=== PATIENT | male | born 2000 | race Caucasian/White ===

== ENCOUNTER 2020-05-21 12:28 | Emergency (ER) | payer SELFPAY ==
[2020-05-21 12:38] VITALS: BP 136/80; PULSE 99; RESP 18; TEMP 36.3; O2SAT 96; BMI 24.4
--- NOTE | 2020-05-21 12:44 | XRR_ITS ---
PROCEDURE INFORMATION: Exam: XR Right Hand Exam date and time: 05/21/2020 12:45 PM Age: 20 years old Clinical indication: Injury or trauma; Initial encounter; Laceration; Right; Ring finger and little finger; Additional info: Pain TECHNIQUE: Imaging protocol: XR Right hand. Views: 3 or more views. COMPARISON: No relevant prior studies available. FINDINGS: Bones/joints: There is a mild deformity in the distal aspect of the metacarpal consistent with a old injury. The exam does not show acute bony abnormalities. Soft tissues: Unremarkable. Negative for soft tissue foreign bodies in the 4th and 5th digits. Mild periarticular soft tissue edema is seen in the 4th and 5th digits XR/XR hand RT min 3V* [id number] IMPRESSION: 1. No acute bone abnormality. 2. 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 Mild soft tissue edema 4th and 5th digits
--- NOTE | 2020-05-21 12:48 | W.ED.EXTPRO ---
HPI - Extremity Problem General: Chief complaint: Extremity Injury, Upper Stated complaint: R hand injury Time Seen by Provider: 05/21/20 12:44 History of Present Illness: HPI Narrative: Patient punched a mailbox last night restating lacerations to #4 and 5 fingers right hand complains about pain with moving fingers. MD Complaint: extremity pain Onset (ago): hour(s) Pain Consistency: constant Location: right and upper extremity Severity scale (1-10): 4 Quality: aching Radiation: none Relieving factors: immobilization Exacerbating factors: range of motion Associated symptoms: Reports no associated symptoms; Deny chest pain, fever(s) or rash Review of Systems Const: Denies: fever(s), chills or body aches Eyes: Denies: change in vision or blurry vision ENMT: Denies: throat pain or nasal congestion Card: Denies: chest pain or dyspnea on exertion Resp: Denies: dyspnea, productive cough or non-productive cough GI: Denies: abdominal pain, nausea or vomiting : Denies: difficulty urinating Musc: Reports: extremity pain (He has laceration #4 and 5 fingers hurts with bending hand.) Skin/Breast: Denies: rash Neuro: Denies: headache(s) Psych: Denies: anxiety or depression Po/Lymph: Denies: easy bruising PFSH ED PFSH: Social History (Updated 05/21/20 @ 12:42 by Rigoberto Martinez RN) Smoking and tobacco status: never smoked Alcohol intake: current Alcohol intake frequency: 0-2 Drinks per Day Substance/Drug Use: never Physical Exam Const: COMMON NORMALS: no acute distress, average body habitus and patient oriented x3 HENMT: COMMON NORMALS: normocephalic HEAD & SCALP: normal to inspection and normocephalic FACE & SINUS: normal facial exam Eye: COMMON NORMALS: conjunctivae normal GENERAL EYE: appearance normal, both eyes and all related structures CONJUNCTIVA: Yes conjunctivae normal Neck/C-Spine: COMMON NORMALS: no JVD Chest: COMMONS NORMALS: normal inspection of the chest Resp: COMMON NORMALS: normal respiratory effort and clear to auscultation bilaterally AUSCULTATION: clear to auscultation bilaterally Cardio: COMMON NORMALS: no JVD, regular rate and regular rhythm RATE: regular rate RHYTHM: regular rhythm GI: COMMON NORMALS: Normal to inspection, nondistended, normoactive bowel sounds present Extremity: COMMON NORMALS: normal to inspection and full ROM Neuro: COMMON NORMALS: patient oriented x3 Psych: COMMON NORMALS: mental status grossly normal APPEARANCE: Yes grossly normal Skin: OTHER: Has 2 small lacerations MP joint of #4 and 5 finger no swelling noted good distal neurovascular status hand appears fine Procedures Laceration Laceration 1: Site: hand Side (If applicable): right Size (cm): 3 Description: linear Pre-repair: wound explored and irrigated extensively Size (cm): other (skin adhesive) Course Vital Signs: Vital signs: Vital Signs Temperature 97.3 F L 05/21/20 12:38 Pulse Rate 99 05/21/20 12:38 Respiratory Rate 16 05/21/20 13:07 Blood Pressure 136/80 05/21/20 12:38 Pulse Oximetry 96 05/21/20 12:38 MDM - Extremity (Nontraumatic) MDM Narrative: Medical decision making narrative: 8 laceration Prevident suturing skin he was used on his 2 lacerations #4 and 5 fingers he was instructed to keep those finger straight for next 24 to 48 hours leave dressing intact follow-up as needed. Discharge Plan Discharge Patient Disposition: Home Clinical Impression: Laceration of fingers without complication Qualifiers: Encounter type: initial encounter Qualified Code(s): S61.219A - Laceration without foreign body of unspecified finger without damage to nail, initial encounter Condition: Stable Prescriptions: New Keflex 500 mg capsule 500 mg PO TID 7 Days Qty: 21 RF: 0 Discharge Orders: Discharge Order (Routine); Ordered 05/21/20 Ordered By: Albert Mc Discharge Diet: Usual diet Discharge Activity: Increase activity as tolerated Patient Instructions: Skin Adhesive Care (ED) Activity Restrictions/Additional Instructions: Follow-up with medical provider as directed. Take medications as prescribed. Return to the ER or your medical provider if condition worsens. Please read and understand discharge instructions. If any questions ask please. Keep odilia tape in place 24-48 hrs. Coding Level of Care Code ED Media Theorist And Author Of for Esperanza Fwd Exam Comprehensive
[2020-05-21 13:07] VITALS: RESP 16
--- NOTE | 2020-05-21 13:15 | PC.NURSE ---
hand soaked in ns per provider tonja gonzáles.
[2020-05-21 13:27] VITALS: RESP 16
--- NOTE | 2020-05-21 13:27 | PC.NURSE ---
santana hartley taped per provider tonja carson
== END 2020-05-21 13:28 | disposition home or self-care (01) ==
PROVIDERS: Emergency Provider Nurse Practitioner Family
DX: S61.214A Laceration without foreign body of right ring finger without damage to nail, initial encounter (principal); S61.216A Laceration without foreign body of right little finger without damage to nail, initial encounter; W22.09XA Striking against other stationary object, initial encounter
CPT/HCPCS: 12002; 12345; 73130; 99281; 99282

== ENCOUNTER 2020-05-22 17:21 | Emergency (ER) | payer SELFPAY ==
[2020-05-22 17:34] VITALS: BP 142/81; PULSE 81; RESP 18; TEMP 37.1; O2SAT 98; BMI 24.4
--- NOTE | 2020-05-22 17:40 | ED_ITS ---
HPI - Wound/Laceration General: Chief Complaint: Wound/Laceration Stated Complaint: lacerations on hand/was here yesterday Time Seen by Provider: 05/22/20 17:40 Source: patient Mode of arrival: ambulatory Limitations: no limitations History of Present Illness: HPI narrative: Patient comes in today for complaints of redness and swelling to the fourth and fifth digit on the right hand. This is the area where patient had injured himself 2 days ago. Patient had some skin adhesive applied to the fourth and and fifth digit to close the wound at that time. Patient did not start antibiotic though. Patient comes back today for increased redness and swelling to the wounds. Review of Systems General: Reports: 10 or more systems reviewed and unremarkable except in HPI and below Skin/Breast: Reports: changes in skin color PFSH ED PFSH: Social History (Updated 05/21/20 @ 12:42 by Rigoberto Martinez RN) Smoking and tobacco status: never smoked Alcohol intake: current Alcohol intake frequency: 0-2 Drinks per Day Physical Exam Const: COMMON NORMALS: no acute distress and patient oriented x3 GENERAL APPEARANCE: cooperative HENMT: COMMON NORMALS: normocephalic and Normal external nose present HEAD & SCALP: normal to inspection and normocephalic NOSE: Normal external nose present Eye: GENERAL EYE: appearance normal, both eyes and all related structures Neck/C-Spine: COMMON NORMALS: full ROM Chest: COMMONS NORMALS: normal inspection of the chest Resp: COMMON NORMALS: normal respiratory effort EFFORT & INSPECTION: Yes able to speak in complete sentences Cardio: COMMON NORMALS: regular rate and regular rhythm RATE: regular rate RHYTHM: regular rhythm GI: COMMON NORMALS: non-tender Back/Pelvis: COMMON NORMALS: thoracic and lumbar spine normal to inspection Extremity: COMMON NORMALS: normal to inspection Neuro: COMMON NORMALS: patient oriented x3 and moves all extremities Psych: COMMON NORMALS: mental status grossly normal and cooperative Skin: NARRATIVE SKIN EXAM: Redness and swelling to the fourth and fifth digit to the right hand with redness extending into the dorsal hand in the same area. Warmth is noted to the area. Course Vital Signs: Vital signs: Vital Signs Temperature 98.7 F 05/22/20 17:34 Pulse Rate 80 05/22/20 18:17 Respiratory Rate 14 05/22/20 18:17 Blood Pressure 131/82 05/22/20 18:17 Pulse Oximetry 99 05/22/20 18:17 MDM - Wound/Laceration MDM Narrative: Medical decision making narrative: Patient comes in for concerns of infection to the wounds on his fourth and fifth digit of his right hand. On exam we note redness and swelling with warmth. Differential diagnosis includes foreign body, wound infection, contusion. Adhesive was removed from the hand patient was started on antibiotic. Patient had only taken 1 dose of his antibiotic that he was prescribed. Feel the patient probably has a little bit of a wound infection there was able to express some purulent drainage from the wound site no signs of tenosynovitis or tendon dysfunction was noted. Patient will continue with antibiotic and follow-up for worsening signs and symptoms. Patient reported understanding. Discharge Plan Discharge Patient Disposition: Home Clinical Impression: Infected wound Condition: Stable Prescriptions: No Action Keflex 500 mg capsule 500 mg PO TID 7 Days Qty: 21 RF: 0 Discharge Orders: Discharge Order (Routine); Ordered 05/22/20 Ordered By: John Richards Discharge Diet: Usual diet Discharge Activity: Increase activity as tolerated Patient Instructions: Wound Infection (ED) Activity Restrictions/Additional Instructions: Home and rest. Clean wound twice daily with soapy water and apply antibiotic ointment. Cover wound when it is draining with gauze dressing. Take antibiotic as ordered. Follow-up with primary care for further treatment. Return to the emergency department for new concerns. Discharge Date/Time: 05/22/20 18:17 Coding Level of Care Code ED Tool Grinder for Esperanza Mendosa Exam Comprehensive
[2020-05-22] MEDS: cefTRIAXone 1,000 mg SDV 1000 MG IM (18:05)
[2020-05-22] MEDS: mupirocin oint 22 gm 1 APPLIC TOPICAL (18:06)
[2020-05-22 18:17] VITALS: BP 131/82; PULSE 80; RESP 14; O2SAT 99
== END 2020-05-22 18:17 | disposition home or self-care (01) ==
PROVIDERS: Emergency Provider Nurse Practitioner Family
DX: L08.9 Local infection of the skin and subcutaneous tissue, unspecified (principal)
CPT/HCPCS: 12345; 96372; 99281; 99283; J0696

== ENCOUNTER → 2021-08-30 12:40 | Outpatient (BNVA) | payer SELFPAY | PROVIDERS: Visit Provider Nurse Practitioner Family | DX: Z20.822 Contact with and (suspected) exposure to COVID-19 (principal) | CPT/HCPCS: 87635 ==